=== PATIENT | male | born 1955 | race Caucasian/White ===

== ENCOUNTER 2017-05-28 18:08 | Emergency (ER) | payer OTHER ==
[~2017-05-28] VITALS: Ht 187.9 cm; Wt 95.3 kg
== END 2017-05-28 19:32 | disposition short-term general hospital (02) ==
LOC: ED 18:08
DX: S62.521B Displaced fracture of distal phalanx of right thumb, initial encounter for open fracture (principal); W22.8XXA Striking against or struck by other objects, initial encounter; Y93.89 Activity, other specified; Y92.89 Other specified places as the place of occurrence of the external cause; Y99.8 Other external cause status